=== PATIENT | female | born 1935 | race Caucasian/White ===

== ENCOUNTER 2016-06-20 10:58 | Emergency (ER) | payer OTHER ==
[~2016-06-20 10:58] MED LIST: ACARBOSE100 MG OR; ACET500CAP PO; ATV1 PO; BYSTOLIC5 MG PO; CIP5 PO; CLIN200 PO; FLUCON1 PO; GENERLAC PO; GLUCOTRO10 PO; GLUCOTROL5 PO; GLUCXL10 PO; HALF81 PO; KDUR10 PO; KLOR-CON 1010 MEQ PO; KLOR-CON M1010 MEQ PO; L40 PO; LANTUS SC; LANTUSCART SC; LEVOTHYROXIN100 MCG PO; LEVOTHYROXIN75 MCG PO; LEVOTHYROXIN88 MCG PO; LOM PO; MCZ125 PO; MCZ25 PO; METHOC500B PO; NEUR100 PO; NORV25 PO; PREM625 PO; PYR100B PO; SEPTRA DS1 TAB PO; STARLIX120 PO; SYN075 PO; TENORETIC1 TAB PO; TRILEP150 PO; VIB100 PO; XALAT OPH; ZIAC5 PO; ZOFRAN4 PO; [UNRECOGNIZED DRUG - CODE] PO
[2016-06-20 11:42] LABS: ASCORBIC ACID (UR NOT ORDER) NEG (NEG); BILIRUBIN, URINE NEGATIVE (NEG); ER URINALYSIS TAT 0 Hrs 08 Mins; KETONE, URINE NEGATIVE (NEG); LEUKOCYTE ESTERASE(NOT OR LARGE (NEG); NITRITE (URINE) NEG (NEG); WBC (NOT ORDERED) (RFLEX) 135 (0-5)
[2016-09-28] MEDS ORDERED: VITC500 PO (09:54)
[2016-09-28] MEDS ORDERED: ASA5GR PO (09:54)
[2016-09-30] MEDS ORDERED: SACU1TAB PO (09:22)
== END 2016-06-20 12:56 | disposition home or self-care (01) ==
LOC: ER 10:58
PROVIDERS: Nurse Practitioner Acute Care
DX: N39.0 Urinary tract infection, site not specified (principal); I10 Essential (primary) hypertension; F32.9 Major depressive disorder, single episode, unspecified; F41.9 Anxiety disorder, unspecified; E11.9 Type 2 diabetes mellitus without complications; Z87.891 Personal history of nicotine dependence; Z86.73 Personal history of transient ischemic attack (TIA), and cerebral infarction without residual deficits; Z90.710 Acquired absence of both cervix and uterus; Z88.5 Allergy status to narcotic agent; Z88.1 Allergy status to other antibiotic agents; Z88.8 Allergy status to other drugs, medicaments and biological substances; Z79.4 Long term (current) use of insulin; Z79.899 Other long term (current) drug therapy
CPT/HCPCS: 72100; 73502-LT; 81001; 87077; 87086; 87186; 96372; 99284

== ENCOUNTER 2016-07-11 11:52 | Emergency (ER) | payer OTHER ==
[2016-07-11 12:47] LABS: BASOPHILS 0.6 %; BASOPHILS ABSOLUTE 0.05 10/3/uL (0.0-0.16); EOSINOPHILS 4.1 %; EOSINOPHILS ABSOLUTE 0.35 10/3/uL (0.0-0.53); ER CBC TAT 0 Hrs 12 Mins; HEMATOCRIT 41.9 % (36.0-48.0); HEMOGLOBIN 14.1 g/dL (12.0-16.0); IMMATURE GRANULOCYTES 0.4 %; LYMPHOCYTES 13.7 %; LYMPHOCYTES ABSOLUTE 1.17 10/3/uL (0.67-4.30); MANUAL DIFF NO %; MEAN CORPUS HGB CONC 33.7 g/dL (32.0-36.0); MEAN CORPUSCULAR HEMOGLOB 27.4 pg (26.0-34.0); MEAN CORPUSCULAR VOLUME 81.5 fL (80-100); MEAN PLATELET VOLUME 9.6 fL (9.2-13.0); MONOCYTES 4.8 %; MONOCYTES ABSOLUTE 0.41 10/3/uL (0.21-1.20); NEUTROPHILS 76.4 %; NEUTROPHILS ABSOLUTE 6.52 10/3/uL (2.02-8.40); PLATELET COUNT 237 10/3/uL (150-400); RBC DISTRIBUTION WIDTH 15.2 % (12.0-16.0); RED CELL COUNT 5.14 10/6/uL (4.0-5.6); WHITE BLOOD CELLS 8.5 10/3/uL (4.5-10.5)
[2016-07-11 12:48] LABS: IMMATURE GRANULOCYTES ABSOLUTE 0.03 10/3/uL (0.0-0.11)
[2016-07-11 12:54] LABS: INTERNATIONAL NORMAL RATI 1.1 UNITS (-); PARTIAL THROMBO TIME 31.4 SEC (22.5-37.2)
[2016-07-11 13:13] LABS: BAND NEUTROPHILS 1 %; BASOPHILS 1 %; BASOPHILS ABSOLUTE (CALC) 0.09 10/3/uL (0.0-0.16); EOSINOPHILS 3 %; EOSINOPHILS ABSOLUTE (CALC) 0.26 10/3/uL (0.0-0.53); ER DIFF TAT 0 Hrs 38 Mins; LYMPHOCYTES 10 %; LYMPHOCYTES ABSOLUTE (CALC) 0.85 10/3/uL (0.67-4.30); MONOCYTES 4 %; MONOCYTES ABSOLUTE (CALC) 0.34 10/3/uL (0.21-1.20); NEUTROPHILS ABSOLUTE (CALC) 6.97 10/3/uL (2.02-8.40); PLATELET ESTIMATE ADQ (ADEQUATE); RBC MORPHOLOGY NORM (NORMAL); SEGMENTED NEUTROPHIL (0) 81 %; TOTAL NUCLEATED CELLS 100
[2016-07-11 13:17] LABS: BUN (BLOOD UREA NITROGEN) 19 MG/DL (6-23); CALCIUM, SERUM 8.7 MG/DL (8.5-10.4); CHLORIDE, SERUM 106 MMOL/L (96-112); CO2 (CARBON DIOXIDE) 27 MMOL/L (24-34); GLUCOSE, SERUM 120 MG/DL (60-99); POTASSIUM, SERUM 3.7 MMOL/L (3.5-5.3); SODIUM, SERUM 141 MMOL/L (135-148)
[2016-07-11 13:21] LABS: CREATININE 1.03 MG/DL (0.55-1.02); GFR AFRICAN AMERICAN 60 ML/MIN (>=60); GFR NON AFRICAN AMERICAN 52 ML/MIN (>=60); TROPONIN I <0.02 NG/ML (<0.05)
[2016-09-28] MEDS ORDERED: ASA5GR PO (09:54)
[2016-09-28] MEDS ORDERED: VITC500 PO (09:54)
[2016-09-30] MEDS ORDERED: SACU1TAB PO (09:22)
== END 2016-07-11 15:08 | disposition home or self-care (01) ==
LOC: ER 11:52
PROVIDERS: Emergency Medicine
DX: R07.9 Chest pain, unspecified (principal); E11.9 Type 2 diabetes mellitus without complications; I11.0 Hypertensive heart disease with heart failure; I50.9 Heart failure, unspecified; F41.9 Anxiety disorder, unspecified; Z87.891 Personal history of nicotine dependence; Z88.5 Allergy status to narcotic agent; Z88.2 Allergy status to sulfonamides; Z88.1 Allergy status to other antibiotic agents; Z88.8 Allergy status to other drugs, medicaments and biological substances; Z79.4 Long term (current) use of insulin; Z79.899 Other long term (current) drug therapy
CPT/HCPCS: 71010; 80048; 83735; 84484; 85025; 85610; 85730; 93005; 99285; A9270-GY